=== PATIENT | male | born 1940 | race Caucasian/White ===

== ENCOUNTER → 2021-02-04 | Outpatient (CLI) | payer MEDICARE, OTHER ==
[~2021-02-04] MED LIST: CATHETER FLUSH 10 ML SYR IV PRN; HOLD METFORMIN - RECEIVED CONTRAST 20 ML VIAL IV SCH; IOHEXOL 350 MG/ML 100 ML (OMNIPAQUE 350) VIAL IV ONE; NS 100 ML (IVPB) BAG IV ONE
--- NOTE | 2021-02-04 09:07 | Diagnostic Imaging Report ---
PROCEDURE: CT abdomen and pelvis with and without contrast. TECHNIQUE: Precontrast acquisitions were acquired through the abdomen and pelvis. Multiple contiguous axial images were obtained through the abdomen and pelvis after the administration of intravenous contrast. Auto Exposure Controls were utilized during the CT exam to meet ALARA standards for radiation dose reduction. INDICATION: Right renal cyst. No prior studies are available for comparison. FINDINGS: The lung bases are clear. There is diffuse low density throughout the liver consistent with hepatic steatosis. No discrete liver mass is detected. Gallbladder is surgically absent. There is no biliary ductal dilatation. The pancreas and spleen are unremarkable. No adrenal mass is detected. The right kidney contains a 4.4 x 3.1 cm cystic lesion. There remains low density on all phases including precontrast, arterial and venous phase as well as delayed imaging. Lesion is without evidence of enhancement and is consistent with a simple cyst. There are smaller cortical low-attenuation lesions in the right kidney as well which are too small to characterize. Left kidney is unremarkable. There is no hydronephrosis. Aorta is calcified but nonaneurysmal. There does appear to be a midline ventral hernia containing small bowel loops. No bowel obstruction or evidence of strangulation is seen. There are postop changes in the left colon. There is no free fluid identified. No fluid collection is detected. The bladder is decompressed. Prostate gland is enlarged. Bony structures are nonacute. IMPRESSION: 1. Hepatic steatosis. 2. Simple appearing right renal cyst. 3. Midline small bowel containing ventral hernia without evidence of strangulation or bowel obstruction. 4. Prostatomegaly. Dictated by: Dictated on workstation # [id number]
== END ==
LOC: RAD 08:45
PROVIDERS: ATTEND Urology
DX: N28.1 Cyst of kidney, acquired (principal); K76.0 Fatty (change of) liver, not elsewhere classified; K43.9 Ventral hernia without obstruction or gangrene; N40.0 Benign prostatic hyperplasia without lower urinary tract symptoms
CPT/HCPCS: 74178